=== PATIENT | male | born 1985 | race Caucasian/White ===

== ENCOUNTER 2016-10-31 20:18 | Inpatient (IN) | payer MEDICAID, OTHER ==
[~2016-10-31] VITALS: Ht 188 cm; Wt 96.9 kg
[~2016-10-31 20:18] MED LIST: AMOX1TAB15 PO; BUPR150T3 PO; LEVO25TA9 PO; MIRT15 PO; MULT1CAP32 PO; MUPI22O TP; OMEP-99 PO; VIST50 PO
[2016-10-31] MEDS ORDERED: LORazepam 2 MG TABLET PO PRN (21:15)
[2016-10-31] MEDS ORDERED: ZOLPIDEM TARTRATE 10 MG TABLET PO PRN (21:15)
[2016-10-31 21:16] VITALS: BP 156/90
[2016-11-01] VITALS (8 sets, daily range): BP systolic 132–142; BP diastolic 80–94
[2016-11-01] MEDS ORDERED: ONDANSETRON HCL 4 MG TABLET PO ONE (00:15)
[2016-11-01] MEDS ORDERED: ChlordiazePOXIDE HCL 25 MG CAPSULE PO ONE (00:15)
[2016-11-01] MEDS ORDERED: PANTOPRAZOLE SODIUM 40 MG DR TABLET PO ONE (00:30)
[2016-11-01 00:44] LABS: BASOPHILS # (AUTO) 0.01 K/uL (0.00-0.20); BASOPHILS % (AUTO) 0.2 % (0.0-2.0); EOSINOPHILS # (AUTO) 0.01 K/uL (0.00-0.70); HEMATOCRIT 39.7 % (41-53); HEMOGLOBIN 13.8 g/dL (13.5-17.5); LYMPHOCYTES # (AUTO) 0.6 K/uL (1.0-4.8); LYMPHOCYTES % (AUTO) 10.7 % (22.0-44.0); MEAN CORPUSCULAR HEMOGLOBIN 34.2 pg (26.0-34.0); MEAN CORPUSCULAR HGB CONC 34.8 G/dL (31.0-37.0); MEAN CORPUSCULAR VOLUME 98 fL (80-100); MONOCYTES # (AUTO) 0.7 K/uL (0.1-1.0); NEUTROPHILS # (AUTO) 3.9 K/uL (1.8-7.7); RED BLOOD CELL COUNT(AUTO) 4.04 MIL/uL (4.50-5.90); RED CELL DISTRIBUTION WIDTH 13.9 % (11.5-14.5); WHITE BLOOD COUNT (AUTO) 5.2 K/uL (4.5-11.0)
[2016-11-01 00:50] LABS: ANION GAP 16 mmol/L (8-16); CALCIUM, TOTAL 9.1 mg/dL (8.8-10.5); CARBON DIOXIDE 26 mmol/L (22-29); CHLORIDE 91 mmol/L (98-107); CREATININE 0.99 mg/dL (0.60-1.30); GLOMERULAR FILTR. RATE CALC > 60 mL/min (>60); POTASSIUM 3.6 mmol/L (3.5-5.1); SODIUM SERUM 133 mmol/L (136-145); UREA NITROGEN, BLOOD 14 mg/dL (7-18)
[2016-11-01 00:56] LABS: ALANINE AMINOTRANSFERASE 275 U/L (12-78); ALBUMIN 3.9 g/dL (3.4-5.0); ASPARTATE AMINOTRANSFERASE 236 U/L (15-37); BILIRUBIN,TOTAL 1.2 mg/dL (0.1-1.0)
[2016-11-01 01:35] LABS: PLATELET COUNT (AUTO) 52 K/uL (150-450)
[2016-11-01 05:11] LABS: BASOPHILS % (AUTO) 0.2 % (0.0-2.0); EOSINOPHILS % (AUTO) 0.5 % (1.0-6.0); HEMATOCRIT 38.7 % (41-53); HEMOGLOBIN 12.9 g/dL (13.5-17.5); LYMPHOCYTES # (AUTO) 0.9 K/uL (1.0-4.8); LYMPHOCYTES % (AUTO) 18.8 % (22.0-44.0); MEAN CORPUSCULAR HEMOGLOBIN 33.4 pg (26.0-34.0); MEAN CORPUSCULAR HGB CONC 33.3 G/dL (31.0-37.0); MEAN CORPUSCULAR VOLUME 100 fL (80-100); MONOCYTES # (AUTO) 0.9 K/uL (0.1-1.0); MONOCYTES % (AUTO) 18.5 % (2.0-9.0); PLATELET COUNT (AUTO) 48 K/uL (150-450); RED BLOOD CELL COUNT(AUTO) 3.85 MIL/uL (4.50-5.90); RED CELL DISTRIBUTION WIDTH 13.5 % (11.5-14.5); WHITE BLOOD COUNT (AUTO) 4.9 K/uL (4.5-11.0)
[2016-11-01 05:56] LABS: ALANINE AMINOTRANSFERASE 237 U/L (12-78); ALBUMIN 3.6 g/dL (3.4-5.0); ANION GAP 9 mmol/L (8-16); ASPARTATE AMINOTRANSFERASE 198 U/L (15-37); CALCIUM, TOTAL 8.7 mg/dL (8.8-10.5); CARBON DIOXIDE 32 mmol/L (22-29); CHLORIDE 92 mmol/L (98-107); CREATININE 0.93 mg/dL (0.60-1.30); GLOMERULAR FILTR. RATE CALC > 60 mL/min (>60); POTASSIUM 3.7 mmol/L (3.5-5.1); SODIUM SERUM 133 mmol/L (136-145); THYROID STIMULATING HORMONE 2.61 uIU/mL (0.36-3.74); TOTAL PROTEIN, SERUM 6.5 g/dL (6.4-8.2); UREA NITROGEN, BLOOD 14 mg/dL (7-18)
[2016-11-01 06:51] LABS: HEMOGLOBIN A1C 5.2 % (4.5-6.2)
[2016-11-01 07:52] LABS: RBC MORPHOLOGY COMMENT ABNORMAL RBC MORPH
[2016-11-01] MEDS: LORazepam 2 MG TABLET PO PRN ×2 (08:02→17:22)
[2016-11-01] MEDS: HydrOXYzine PAMOATE 50 MG CAPSULE PO SCH (11:03)
[2016-11-01] MEDS ORDERED: ONDANSETRON HCL 4 MG TABLET PO PRN (13:00)
[2016-11-01] MEDS ORDERED: IBUPROFEN 400 MG TABLET PO PRN (16:30)
[2016-11-01] MEDS ORDERED: ACETAMINOPHEN 325 MG TABLET PO PRN (16:30)
[2016-11-01] MEDS ORDERED: ALBUTEROL SULFATE HFA 90 MCG/PUFF 8 GM INHALER IH PRN (16:30)
[2016-11-01] MEDS ORDERED: MIRTAZAPINE 15 MG TABLET PO SCH (21:00)
[2016-11-01 21:34] LABS: APPEARANCE,URINE CLEAR (CLEAR); GLUCOSE, URINE (UA) NEGATIVE (NEGATIVE); KETONES,URINE TRACE mg/dL (NEGATIVE); LEUKOCYTE ESTERASE ,URINE TRACE (NEGATIVE); OCCULT BLOOD,URINE NEGATIVE (NEGATIVE); PROTEIN,URINE TRACE (NEGATIVE)
[2016-11-01 21:44] LABS: ADD UA MICROSCOPIC YES
[2016-11-01 22:00] LABS: RBC,URINE 0-2 /HPF (0-2)
[2016-11-02 00:33] VITALS: BP 135/87
[2016-11-02 02:02] VITALS: BP 135/87
[2016-11-02 04:33] VITALS: BP 132/85
[2016-11-02] MEDS: LORazepam 2 MG TABLET PO PRN (06:27)
[2016-11-02] MEDS ORDERED: LEVOTHYROXINE SODIUM 50 MCG TABLET PO SCH (06:30)
[2016-11-02] MEDS ORDERED: LORazepam 2 MG TABLET PO PRN (07:00)
[2016-11-02 07:02] LABS: HEMOGLOBIN A1C 5.1 % (4.5-6.2)
[2016-11-02 07:39] LABS: THYROID STIMULATING HORMONE 5.56 uIU/mL (0.36-3.74)
[2016-11-02 08:30] VITALS: BP 139/92
[2016-11-02] MEDS ORDERED: BuPROPion HCL 150 MG SR TABLET PO SCH (09:00)
[2016-11-02] MEDS: HydrOXYzine PAMOATE 50 MG CAPSULE PO SCH (09:02)
[2016-11-02] MEDS: LORazepam 2 MG TABLET PO SCH ×2 (09:04→13:34)
[2016-11-02] MEDS ORDERED: LOPERAMIDE HCL 2 MG CAPSULE PO PRN (11:15)
[2016-11-02] MEDS ORDERED: BUPR150SR PO (13:07)
[2016-11-02] MEDS ORDERED: MIRT15 PO (13:08)
[2016-11-02] MEDS ORDERED: VIST50 PO (13:08)
[2016-11-02] MEDS ORDERED: LEVO50 PO (13:14)
[2016-11-04] MEDS ORDERED: LORazepam 1 MG TABLET PO PRN (07:00)
[2016-11-04] MEDS ORDERED: LORazepam 1 MG TABLET PO SCH (09:00)
[2016-11-05] MEDS ORDERED: LORazepam 1 MG TABLET PO PRN (07:00)
== END 2016-11-02 14:35 | disposition home or self-care (01) | DRG 754 ==
LOC: BV PSY EVL 23:55 → AHU 11-01 00:45 → 3EI 11-01 16:53
PROVIDERS: ADMIT Psychiatry & Neurology Child & Adolescent Psychiatry; ATTEND Psychiatry & Neurology Child & Adolescent Psychiatry
DX: F32.9 Major depressive disorder, single episode, unspecified (principal); K92.0 Hematemesis; D69.6 Thrombocytopenia, unspecified; R45.851 Suicidal ideations; J44.9 Chronic obstructive pulmonary disease, unspecified; I10 Essential (primary) hypertension; F10.239 Alcohol dependence with withdrawal, unspecified; E03.9 Hypothyroidism, unspecified; F41.9 Anxiety disorder, unspecified; F17.210 Nicotine dependence, cigarettes, uncomplicated; G47.00 Insomnia, unspecified; K21.9 Gastro-esophageal reflux disease without esophagitis; K29.20 Alcoholic gastritis without bleeding; M19.90 Unspecified osteoarthritis, unspecified site; F19.10 Other psychoactive substance abuse, uncomplicated; Z87.891 Personal history of nicotine dependence; Z82.3 Family history of stroke; Z82.61 Family history of arthritis
CPT/HCPCS: 83036; 84439; 84443; 87081; 87086; 99285; G0480; Q0162